=== PATIENT | male | born 1990 | race African-American/Black ===

== ENCOUNTER 2020-06-05 16:34 | Emergency (ER) | payer OTHER, SELFPAY ==
[2020-06-05 16:48] VITALS: BP 144/82; PULSE 71; RESP 16; TEMP 37.3; O2SAT 99
--- NOTE | 2020-06-05 17:14 | ED.GENADULT ---
HPI - General Adult General Chief complaint: Urogenital-Male Stated complaint: STD Source: patient Mode of arrival: ambulatory Limitations: no limitations History of Present Illness HPI narrative: Patient presents for evaluation of urethral discharge for the last 2 days. He states that the discharge is sands in appearance. He is sexually active with one female partner. He states that they do use condoms but during a recent sexual encounter the condom broke. He believes she is symptomatic as well. He denies any fever, chills, testicular pain, abdominal pain, urinary symptoms. Related Data Allergies Allergy/AdvReac Type Severity Reaction Status Date / Time No Known Allergies Allergy Verified 06/05/20 17:18 Review of Systems Review of Systems: Narrative: CONSTITUTIONAL: Denies fever, chills, or sweats. EYES: Denies visual changes, redness, or discharge. ENT: Denies rhinorrhea, congestion, sore throat, or otalgia. CARDIOVASCULAR: Denies chest pain, palpitations, or edema. RESPIRATORY: Denies cough or dyspnea. GASTROINTESTINAL: Denies abdominal pain, nausea, vomiting, or diarrhea. GENITOURINARY: Denies dysuria or hematuria. Reports urethral discharge SKIN: Denies rash or itching. MUSCULOSKELETAL: Denies back pain, joint pain, or myalgia. NEUROLOGIC: Denies headache, numbness, dizziness, or weakness. PSYCHIATRIC: Denies anxiety or depression. [facility] Past Medical History Medical History (Updated 06/05/20 @ 17:18 by Tulio Elias, [facility], ) No pertinent past medical history Surgical History Surgical History No pertinent past surgical history Family History Family History Father Diabetes mellitus Social History Social History Smoking status: Never smoker Alcohol intake: never Substance use: never Living arrangements: alone Gender identity (if verbalized by the patient): Male Sexual Orientation (if Verbalized by the Patient): Straight or Heterosexual Exam Narrative: Exam Narrative: GENERAL: Well-appearing, well-nourished, and in no acute distress. HEAD: Normocephalic, atraumatic. EYES: PERRLA and EOMI. ENT: Nares clear, no rhinorrhea or epistaxis. Mucous membranes moist. Oropharynx without tonsillar hypertrophy exudate or other lesions. Bilateral TMs pearly sands nonbulging NECK: Supple. No adenopathy or masses. No carotid bruits or JVD CHEST: Clear to auscultation. No respiratory distress. No wheezes rales or rhonchi HEART: Regular rate and rhythm. No murmur heard. Normal peripheral pulses. ABDOMEN: Soft, nontender, nondistended, normal active bowel sounds. : No external genital lesions. No testicular tenderness or masses. No scrotal swelling. Sands discharge noted from urethral orifice EXTREMITIES: Normal range of motion. No edema. SKIN: Warm, dry, no rash. NEURO: No focal deficits. Alert and oriented x3. PSYCH: Normal mood and affect. Course Course Emergency Course: 30-year-old male who presents today for STD examination. On exam he does have a sands discharge noted. He will be treated empirically for gonorrhea, chlamydia, trichomonas. He was advised to have comprehensive STD examination conducted. Abstain from sexual activity for 7 days. He must inform and have all sex partners evaluated and treated. Vital Signs Vital signs: Vital Signs Temperature 37.3 C 06/05/20 16:48 Pulse Rate 71 06/05/20 16:48 Respiratory Rate 16 06/05/20 16:48 Blood Pressure 144/82 H 06/05/20 16:48 Pulse Oximetry 99 06/05/20 16:48 Temperature 37.3 C 06/05/20 16:48 Pulse Rate 71 06/05/20 16:48 Respiratory Rate 16 06/05/20 16:48 Blood Pressure 144/82 H 06/05/20 16:48 Pulse Oximetry 99 06/05/20 16:48 Medical Decision Making Differential Diagnosis Differential Diagnosis: Gonorrhea versus chlamydi
[2020-06-05] MEDS: cefTRIAXone 250 MG VIAL IM (17:32)
[2020-06-05] MEDS: AZITHROMYCIN 250 MG TABLET 1000 MG PO (17:32)
== END 2020-06-05 17:45 | disposition home or self-care (01) ==
PROVIDERS: Emergency Provider Nurse Practitioner
DX: Z20.2 Contact with and (suspected) exposure to infections with a predominantly sexual mode of transmission (principal)
CPT/HCPCS: 87491; 87591; 87661; 96372; 99203; A9270; G0463; J0696

== ENCOUNTER 2021-01-20 18:22 | Emergency (ER) | payer OTHER, SELFPAY ==
--- NOTE | 2021-01-20 18:24 | ED.MALEGU ---
HPI - Male Genitourinary General Chief complaint: Urogenital-Male Stated complaint: Possible Herpes Outbreak Time Seen by Provider: 01/20/21 18:24 Source: patient and RN notes reviewed History of Present Illness HPI Narrative: Patient is a 31-year-old male who presents the urgent care with complaints of a herpes breakout. Patient states that he noticed it a couple days ago and is aware that he is positive for genital herpes. Patient states he found out approximately 4 months ago and has had 1 breakout since then. Patient states he believes he got it from a female with oral sex. Denies of any other genital complaints at this time. Denies of any penile discharge. Denies of any dysuria or hematuria. No other acute complaints. No acute distress noted. Patient aware of the plan of care. Some parts of this dictation were generated by voice recognition software and may contain typographical and/or grammatical inaccuracies. Related Data Allergies Allergy/AdvReac Type Severity Reaction Status Date / Time No Known Allergies Allergy Verified 01/20/21 18:45 Review of Systems Review of Systems: Narrative: CONSTITUTIONAL: Denies fever, chills, or sweats. EYES: Denies visual changes, redness, or discharge. ENT: Denies rhinorrhea, congestion, sore throat, or otalgia. CARDIOVASCULAR: Denies chest pain, palpitations, or edema. RESPIRATORY: Denies cough or dyspnea. GASTROINTESTINAL: Denies abdominal pain, nausea, vomiting, or diarrhea. GENITOURINARY: Denies dysuria or hematuria. Reports of genital herpes break SKIN: Denies rash or itching. MUSCULOSKELETAL: Denies back pain, joint pain, or myalgia. NEUROLOGIC: Denies headache, numbness, or weakness. All other systems reviewed are negative, except as documented in HPI. [facility] Past Medical History Medical History (Updated 01/20/21 @ 18:52 by ASTON Coley) No pertinent past medical history Surgical History Surgical History No pertinent past surgical history Family History Family History Father Diabetes mellitus Social History Social History (Updated 06/05/20 @ 17:16 by ASTON Marie, ) Smoking status: Never smoker Alcohol intake: never Substance use: never Gender identity (if verbalized by the patient): Male Comments At the time of my signature, I reviewed and agree with the nursing past medical, surgical, social, and family history. There is no relevant family history pertinent to the patient complaint. Exam Narrative: Exam Narrative: GENERAL: This is a well-nourished, well-developed patient, in no apparent distress. HEAD: normocephalic, atraumatic. EYES: PERRL. Sclera clear/white. Vision is grossly intact. EARS: External ears normal NOSE: External nose normal with no obvious nasal discharge, nares without redness, no rhinorrhea. THROAT: Mucous membranes moist NECK: Neck supple CARDIOVASCULAR: Regular rate and rhythm without murmurs, gallops, or rubs. RESPIRATORY: Clear to auscultation. Breath sounds equal bilaterally. No wheezes, rales, or rhonchi. : Deferred exam SKIN: warm, intact with no suspicious lesions or rash, good texture and turgor. NEURO: awake, alert, and oriented to person, place and time. There were no obvious focal neurologic abnormalities. EXTREMITIES: No clubbing, cyanosis, or edema. Course Vital Signs Vital signs: Vital Signs Temperature 98.6 F 01/20/21 18:29 Pulse Rate 83 01/20/21 18:29 Respiratory Rate 16 01/20/21 18:29 Blood Pressure 150/25 H 01/20/21 18:29 Pulse Oximetry 100 01/20/21 18:29 Temperature 98.6 F 01/20/21 18:29 Pulse Rate 83 01/20/21 18:29 Respiratory Rate 16 01/20/21 18:29 Blood Pressure 150/25 H 01/20/21 18:29 Pulse Oximetry 100 01/20/21 18:29 Reviewed MDM - Male Genitourinary MDM Narrative Medical decision making narrative: Advised the pa
[2021-01-20 18:29] VITALS: BP 150/25; PULSE 83; RESP 16; TEMP 37; O2SAT 100
[2021-01-20 18:54] VITALS: BP 150/82
== END 2021-01-20 18:55 | disposition home or self-care (01) ==
PROVIDERS: Emergency Provider Nurse Practitioner Family
DX: A60.00 Herpesviral infection of urogenital system, unspecified (principal)
CPT/HCPCS: 99213; G0463